=== PATIENT | female | born 1945 | race Two or more races ===

== ENCOUNTER 2024-02-03 12:44 | Emergency (ER) | payer OTHER ==
[~2024-02-03] VITALS: Ht 185.4 cm; Wt 68.0 kg
[2024-02-03] MEDS ORDERED: FAMOTIDINE/PF 20 MG in 0.9 % SODIUM CHLORIDE 8 ML IV PUSH STA (13:23)
[2024-02-03] MEDS ORDERED: ELIQUIS2.5 MG PO (13:28)
[2024-02-03] MEDS ORDERED: PACERONE100 MG PO (13:28)
[2024-02-03] MEDS ORDERED: CARDIZEM30 MG PO (13:29)
[2024-02-03] MEDS ORDERED: PEPCID AC20 MG PO (13:29)
[2024-02-03] MEDS ORDERED: FUROsemide 20 MG/2 ML VIAL IV ONE (13:30)
[2024-02-03] MEDS ORDERED: GLUMETZA1000 MG PO (13:30)
[2024-02-03] MEDS ORDERED: NITROGLYCERIN IN 5 % DEXTROSE 250 ML IV SCH (13:30)
[2024-02-03 13:38] LABS: HEMATOCRIT 39.9 % (36.0-45.00); HEMOGLOBIN 13.6 g/dL (12.0-15.00); MEAN CELL VOLUME 91.6 fL (80.00-100.00); MEAN CORPUSCULAR HEMOGLOBIN 31.2 pg (27.00-32.0); MEAN CORPUSCULAR HGB CONC 34.1 g/dl (32.0-36.0); PLATELET COUNT 151 K/uL (150-450); RED BLOOD COUNT 4.36 M/uL (4.00-6.00); RED CELL DISTRIBUTION WIDTH 12.8 % (11.5-14.5)
[2024-02-03 13:59] LABS: INR 1.07; PARTIAL THROMBOPLASTIN TIME 22.6 SECONDS (22.0-34.0); PROTHROMBIN TIME 11.2 SECONDS (9.0-11.5)
[2024-02-03 14:02] LABS: ALBUMIN 3.9 gm/dL (3.4-5.0); BILIRUBIN TOTAL 0.75 mg/dL (0.3-1.2); CALCIUM 9.6 mg/dL (8.5-10.1); CREATININE SERUM 1.55 mg/dL (0.55-1.02); GFR 32.34; GLOBULINA 4.1 G/DL (2.4-3.5); POTASSIUM 4.67 mEq/L (3.5-5.1)
== END 2024-02-03 16:56 | disposition home or self-care (01) ==
LOC: ER 12:44
PROVIDERS: General Practice
DX: R07.89 Other chest pain (principal); Z20.822 Contact with and (suspected) exposure to COVID-19
CPT/HCPCS: 36415; 71045; 96365; 99283; J3490

== ENCOUNTER 2024-08-09 11:58 | Inpatient (IN) | payer OTHER ==
[~2024-08-09] VITALS: Ht 182.9 cm; Wt 113.4 kg
[~2024-08-09 11:58] MED LIST: CARDIZEM30 MG PO; ELIQUIS2.5 MG PO; GLUMETZA1000 MG PO; PACERONE100 MG PO; PEPCID AC20 MG PO
[2024-08-09] MEDS ORDERED: PANTOPRAZOLE SODIUM 40 MG/VIAL VIAL IV ONE (14:30)
[2024-08-09] MEDS ORDERED: 0.9 % SODIUM CHLORIDE 1,000 ML IV ONE (15:00)
[2024-08-09] MEDS ORDERED: AMIODARONE HCL 50 MG/ML AMPUL IV SCH (15:45)
[2024-08-09] MEDS ORDERED: AMIODARONE IN DEXTROSE,ISO-OSM 360 MG/200 ML IV.SOLN IV ONE ×2 (15:49→22:09)
[2024-08-09 15:50] LABS: HEMATOCRIT 37.7 % (36.0-45.00); HEMOGLOBIN 12.8 g/dL (12.0-15.00); MEAN CELL VOLUME 91.8 fL (80.00-100.00); MEAN CORPUSCULAR HEMOGLOBIN 31.1 pg (27.00-32.0); MEAN CORPUSCULAR HGB CONC 33.9 g/dl (32.0-36.0); PH,URINE 5.5 (5.0-8.0); PLATELET COUNT 216 K/uL (150-450); RED BLOOD COUNT 4.11 M/uL (4.00-6.00); RED CELL DISTRIBUTION WIDTH 13.8 % (11.5-14.5); URINE APPEARANCE Cloudy; URINE BILIRRUBIN Small (NEGATIVE); URINE BLOOD Negative; URINE COLOR Dark Yellow; URINE GLUCOSE Negative (NEGATIVE); URINE KETONE Trace (NEGATIVE); URINE LEUKOCYTE Moderate; URINE NITRATE Negative; URINE PROTEIN 30 (NEGATIVE)
[2024-08-09 15:54] LABS: URINE BACTERIA 113.3 uL (0.0-1933); URINE CAST 8.54 uL (0.0-1.40); URINE EPITHELIAL CELLS 26.7 uL (0.0-38.8); URINE RBC 5.3 uL (0.0-20.8); URINE WBC 137.3 uL (0.0-23.2)
[2024-08-09 16:20] LABS: ALBUMIN 3.4 gm/dL (3.4-5.0); BILIRUBIN TOTAL 2.53 mg/dL (0.3-1.2); CREATININE SERUM 2.27 mg/dL (0.55-1.02); GFR 20.82; GLOBULINA 3.5 G/DL (2.4-3.5); POTASSIUM 5.32 mEq/L (3.5-5.1); TOTAL PROTEIN 6.9 gm/dL (6.4-8.2)
[2024-08-09] MEDS ORDERED: AMIODARONE IN DEXTROSE,ISO-OSM 360 MG/200 ML IV.SOLN IV SCH (16:30)
[2024-08-09] MEDS ORDERED: PANTOPRAZOLE SODIUM 40 MG/VIAL VIAL IV SCH (17:00)
[2024-08-09 17:37] LABS: INR 1.79; PARTIAL THROMBOPLASTIN TIME 28.8 SECONDS (22.0-34.0)
[2024-08-09] MEDS ORDERED: ONDANSETRON HCL 2 MG/ML VIAL ONE (17:38)
[2024-08-09 17:39] LABS: PROTHROMBIN TIME 18.7 SECONDS (9.0-11.5)
[2024-08-09] MEDS ORDERED: ONDANSETRON HCL 2 MG/ML VIAL IV ONE (17:45)
[2024-08-10] MEDS ORDERED: MECLIZINE HCL 25 MG TABLET PO ONE ×2 (08:45→08:49)
[2024-08-10] MEDS ORDERED: AMIODARONE IN DEXTROSE,ISO-OSM 360 MG/200 ML IV.SOLN IV ONE (09:47)
[2024-08-10] MEDS ORDERED: DEXTROSE 50 % IN WATER 0.5 G/ML DISP.SYRIN IV PRN (16:45)
[2024-08-10] MEDS ORDERED: INSULIN LISPRO 1,000 UNIT/10 ML UNITS SUBCUTANEO PRN (16:45)
[2024-08-10] MEDS ORDERED: AMIODARONE HCL 200 MG TABLET PO SCH (16:54)
[2024-08-10] MEDS ORDERED: ONDANSETRON HCL 4 MG in 0.9 % SODIUM CHLORIDE 50 ML IV PRN (17:00)
[2024-08-10] MEDS ORDERED: DILTIAZEM HCL 30 MG TABLET PO SCH ×2 (17:00)
[2024-08-10] MEDS ORDERED: APIXABAN 2.5 MG TABLET PO SCH (17:00)
[2024-08-10] MEDS ORDERED: METOPROLOL TARTRATE 25 MG TABLET PO SCH (17:00)
[2024-08-10 19:17] VITALS: BP 131/88; O2SAT 100
[2024-08-10] MEDS ORDERED: PANTOPRAZOLE SODIUM 80 MG in 0.9 % SODIUM CHLORIDE 100 ML IV SCH (19:30)
[2024-08-10 22:54] VITALS: BP 90/80; O2SAT 100
[2024-08-11 07:41] VITALS: BP 103/88; O2SAT 98
[2024-08-11 11:32] VITALS: BP 112/52; O2SAT 99
[2024-08-11 16:25] VITALS: BP 126/93; O2SAT 95
[2024-08-11 17:12] VITALS: O2SAT 96
[2024-08-11] MEDS ORDERED: PANTOPRAZOLE SODIUM 40 MG/VIAL VIAL ONE (17:34)
[2024-08-11] MEDS ORDERED: ONDANSETRON HCL 2 MG/ML VIAL ONE (17:34)
[2024-08-11 19:45] VITALS: O2SAT 98
[2024-08-12] VITALS (9 sets, daily range): BP systolic 97–111; BP diastolic 71–81; O2SAT 90–100
[2024-08-12] MEDS ORDERED: CARVEDILOL 3.125 MG TABLET PO SCH (09:00)
[2024-08-12] MEDS ORDERED: METOPROLOL TARTRATE 25 MG TABLET PO SCH (17:00)
[2024-08-13 02:49] VITALS: BP 100/73
[2024-08-13 09:16] VITALS: BP 102/70; O2SAT 97
[2024-08-13 09:30] VITALS: O2SAT 91
[2024-08-13 16:06] VITALS: BP 94/70
[2024-08-14 02:04] VITALS: BP 96/47
[2024-08-14 05:15] VITALS: O2SAT 98
[2024-08-14 08:00] VITALS: BP 118/78; BP 124/73
[2024-08-14 09:23] VITALS: O2SAT 96
[2024-08-14 13:15] VITALS: O2SAT 100
[2024-08-14 17:50] VITALS: BP 70/50
[2024-08-14] MEDS ORDERED: FUROsemide 20 MG/2 ML VIAL IV ONE (20:45)
[2024-08-15] VITALS (7 sets, daily range): BP systolic 90–135; BP diastolic 65–85; O2SAT 94–99
== END 2024-08-15 21:09 | disposition home or self-care (01) | DRG 310 ==
LOC: ER 12:00 → ICU-2 08-10 17:27 → SEC-K 08-10 17:27 → MEDI 08-10 18:00 → ICU-2 08-10 19:34 → SEC-K 08-11 09:19 → MEDJ 08-11 10:23 → MEDI 08-12 19:38
PROVIDERS: General Practice; ADMIT Internal Medicine Cardiovascular Disease; ATTEND Internal Medicine Cardiovascular Disease
PROC: B246ZZZ Ultrasonography of Right and Left Heart (ICD-10-PCS; principal; 2024-08-10)
PROC: 4A12X4Z Monitoring of Cardiac Electrical Activity, External Approach (ICD-10-PCS; 2024-08-11)
DX: I48.91 Unspecified atrial fibrillation (principal); K29.70 Gastritis, unspecified, without bleeding; Z20.822 Contact with and (suspected) exposure to COVID-19